=== PATIENT | female | born 1995 | race African-American/Black ===

== ENCOUNTER 2018-06-10 22:22 | Emergency (ER) | payer OTHER ==
[~2018-06-10] VITALS: Ht 160 cm; Wt 61.9 kg
[2018-06-10 22:52] LABS: HEMATOCRIT 38.4 % (36.0-46.0); HEMOGLOBIN 12.5 G/DL (11.9-15.5); MCH 27.6 PG (29.0-34.0); MCHC 32.6 G/DL (30.0-36.0); MCV 84.8 FL (83-99); PLATELET COUNT 240 K/uL (156-360); RBC DIS.WIDTH-CV 14.6 % (11.8-14.6); RBC DIS.WIDTH-SD 44.9 % (39-53); RED BLOOD COUNT 4.53 M/uL (3.80-5.20); WHITE BLOOD COUNT 5.5 K/uL (4.1-10.2)
[2018-06-10 23:02] LABS: ALBUMIN 4.5 g/dL (3.2-4.8)
[2018-06-10 23:03] LABS: CHLORIDE 105 mEq/L (99-109); POTASSIUM 3.7 mEq/L (3.7-5.4); SODIUM 139 mEq/L (136-147)
[2018-06-10 23:05] LABS: GLUCOSE 85 mg/dL (70-99); TOTAL PROTEIN 7.8 g/dL (6.4-8.3)
[2018-06-10 23:07] LABS: TOTAL BILIRUBIN 0.6 mg/dL (0.0-1.0)
[2018-06-10 23:08] LABS: ALKALINE PHOSPHATASE 57 IU/L (3-129)
[2018-06-10 23:09] LABS: CREATININE 1.1 mg/dL (0.6-1.3); GFR ESTIMATE (CALCULATED) > 59 mL/min/
[2018-06-10 23:10] LABS: AST (GOT) 13 IU/L (2-34); UREA NITROGEN (BUN) 22 mg/dL (9-23)
[2018-06-10 23:11] LABS: ALT (GPT) 10 IU/L (3-49)
[2018-06-10 23:14] LABS: APPEARANCE SL.HAZY ((CLEAR)); BILIRUBIN NEGATIVE; BLOOD MODERATE; COLOR YELLOW ((YELLOW)); GLUCOSE (STRIP) NEGATIVE; KETONES 5; LEUKOCYTES NEGATIVE; NITRITE NEGATIVE; PROTEIN (STRIP) 100; SPECIFIC GRAVITY 1.032 (1.000-1.030); UROBILINOGEN 0.2 MG/DL (0.2-1.0)
[2018-06-10 23:19] LABS: QUANTITATIVE HCG < 4.0 MIU/ML
[2018-06-10 23:29] LABS: BACTERIA NONE SEEN /HPF; EPITHELIAL CELLS 1+ /HPF; HYALINE CASTS 0-5 /LPF; MUCUS 4+ /LPF; UCUL ADDED? NO; URIC ACID CRYSTALS 2+ /HPF; WHITE BLOOD CELLS 0-5 /HPF (0-5)
[2018-06-10 23:39] LABS: LIPASE 12 U/L (1.0-51.0)
[2018-06-11 01:00] VITALS: BP 137/72
== END 2018-06-11 01:00 | disposition home or self-care (01) ==
LOC: EME 22:22
DX: K29.70 Gastritis, unspecified, without bleeding (principal); N92.0 Excessive and frequent menstruation with regular cycle; Z79.3 Long term (current) use of hormonal contraceptives
CPT/HCPCS: 76856; 80053; 81003; 83690; 84702; 85027; 99281; 99284; J2405; J7030